=== PATIENT | female | born 1995 | race Two or more races ===

== ENCOUNTER 2019-07-29 12:36 | Emergency (ER) | payer OTHER ==
[~2019-07-29] VITALS: Ht 167.6 cm; Wt 90.7 kg
--- NOTE | 2019-07-29 12:52 | NUR ---
PT [id number] [id number], SUICIDAL W/ NOTED SELF INFLICT L WRIST LACERATION. PT IS AAOX4, NOT IN RESPIRATORY DISTRESS, HOOKED TO MONITOR, KEPT RESTED AND COMFORTABLE, WILL CONTINUE TO MONITOR.
--- NOTE | 2019-07-29 13:00 | NUR ---
CALLED SECURITY FOR WANDING.
--- NOTE | 2019-07-29 13:05 | NUR ---
SHRIMP CLEANER DEGRASSE AT BEDSIDE
--- NOTE | 2019-07-29 13:09 | NUR ---
URINAL GIVEN BUT UNABLE TO PROVIDE URINE SPECIMEN THIS TIME.
[2019-07-29] MEDS ORDERED: ONDANSETRON 4 MG TAB.RAPDIS ONE (13:12)
[2019-07-29] MEDS ORDERED: LORAZEPAM 1 MG TABLET ONE ×2 (13:14→17:47)
--- NOTE | 2019-07-29 13:23 | NUR ---
URINE SPECIMEN COLLECTED AND SENT TO LAB.
[2019-07-29] MEDS ORDERED: LIDOCAINE 2%-EPI 1:100,000 30 ML VIAL ONE (13:25)
[2019-07-29] MEDS ORDERED: TDAP [DIPH/PERTUSSIS/TET] 0.5 ML VIAL IM ONE ×2 (13:26→13:30)
[2019-07-29 13:28] LABS: APPEARANCE,URINE Clear (CLEAR); BILIRUBIN,URINE SMALL (NEGATIVE); BLOOD, URINE Large Ery/uL (NEGATIVE); COLOR,URINE Yellow (YELLOW); KETONES,URINE Trace (NEGATIVE); LEUKOCYTE ESTERASE ,URINE Negative (NEGATIVE); NITRITE, URINE Negative (NEGATIVE); PROTEIN,URINE Trace mg/dl (NEGATIVE); UGLUCOSE Negative (NEGATIVE); UROBILINOGEN,URINE 0.2 EU/dL (0.2)
[2019-07-29] MEDS ORDERED: LIDOCAINE 1%-EPI 1:100,000 50 ML VIAL IJ ONE (13:30)
[2019-07-29] MEDS ORDERED: ONDANSETRON 4 MG TAB.RAPDIS SL ONE (13:30)
[2019-07-29] MEDS ORDERED: LORAZEPAM 1 MG TABLET PO ONE ×2 (13:30→18:00)
--- NOTE | 2019-07-29 13:30 | NUR ---
ER PHLEB AT BEDSIDE FOR BLOOD DRAW.
[2019-07-29 13:32] LABS: BACTERIA,URINE Few /HPF (None Seen); SQUAMOUS EPITHELIAL CELL,UR Few /HPF (None Seen)
[2019-07-29 13:36] LABS: BASOPHILS # (AUTO) 0.1 /CMM (0.0-0.2); BASOPHILS % (AUTO) 0.8 % (0.0-2.0); EOSINOPHILS % (AUTO) 0.4 % (0.0-6.0); HEMATOCRIT 47 % (33-45); HEMOGLOBIN 15.3 g/dL (11.5-14.8); LYMPHOCYTES # (AUTO) 1.9 /CMM (0.8-4.8); LYMPHOCYTES % (AUTO) 23.2 % (20.0-44.0); MEAN CORPUSCULAR HGB CONC 33 g/dl (31.0-36.0); MEAN CORPUSCULAR VOLUME 92 fL (82-100); MONOCYTES # (AUTO) 0.5 /CMM (0.1-1.30); MONOCYTES % (AUTO) 5.6 % (2.0-12.0); NEUTROPHILS # (AUTO) 5.7 /CMM (1.8-8.9); PLATELET COUNT (AUTO) 324 /CMM (150-450); RED BLOOD CELL COUNT(AUTO) 5.06 MIL/uL (4.0-5.2); WHITE BLOOD COUNT (AUTO) 8.1 K/uL (4.3-11.0)
[2019-07-29 13:43] LABS: CALCIUM, SERUM 9.9 mg/dL (8.5-10.1); CARBON DIOXIDE 28 mmol/L (21-32); CHLORIDE 105 mmol/L (98-107); CREATININE 0.8 mg/dL (0.6-1.3); GLUCOSE 103 mg/dL (74-106); POTASSIUM 3.6 mmol/L (3.5-5.1); SODIUM SERUM 142 mmol/L (136-145); UREA NITROGEN, BLOOD 10 mg/dL (7-18)
[2019-07-29 13:48] LABS: ALANINE AMINOTRANSFERASE 31 U/L (12-78); ALBUMIN 4.6 g/dL (3.4-5.0); ALKALINE PHOSPHATASE 71 U/L (46-116); ASPARTATE AMINOTRANSFERASE 17 U/L (15-37); BILIRUBIN,DIRECT 0.1 mg/dL (0.0-0.2); BILIRUBIN,TOTAL 0.6 mg/dL (0.2-1.0); TOTAL PROTEIN, SERUM 8.6 g/dL (6.4-8.2)
[2019-07-29 13:49] LABS: ACETAMINOPHEN 0 ug/ml (10-30); ALCOHOL, BLOOD < 3 mg/dL (0-0); SALICYLATE 0.6 mg/dL (2.8-20.0)
--- NOTE | 2019-07-29 13:50 | NUR ---
SUTURING DONE BY ARCELIA ELDER NP.
--- NOTE | 2019-07-29 14:20 | NUR ---
FOOD TRAY PROVIDED.
--- NOTE | 2019-07-29 16:00 | NUR ---
SORAIDA SISTER CALLED TO CHECK UP ON HER.
--- NOTE | 2019-07-29 17:20 | NUR ---
DREAD RIVERA AT [facility] FOR EVAL.
--- NOTE | 2019-07-29 19:33 | NUR ---
SORAIDA NICKERSON SISTER
--- NOTE | 2019-07-29 23:30 | NUR ---
pt resting in gurney, no signs of distress noted. pt vital signs stable. sitter at bedside. will cont to monitor pt.
[2019-07-30] MEDS ORDERED: LORAZEPAM 1 MG TABLET ONE (00:01)
[2019-07-30] MEDS ORDERED: LORAZEPAM 1 MG TABLET PO ONE (00:30)
--- NOTE | 2019-07-30 04:50 | NUR ---
pt sleeping in rnaples. no signs of distress noted. pt vital signs stable. sitter at bedside. will cont to monitor pt.
--- NOTE | 2019-07-30 05:57 | NUR ---
PT VERBALIZED THAT HER R ARM WHERE THE CUT IS HURTING. MD MADE AWARE. VERBAL ORDER RECEIVED TO GIVE TYLENIL 650MG PO X 1. NOTED AND CARRIED OUT
[2019-07-30] MEDS ORDERED: ACETAMINOPHEN 325 MG TABLET ONE (05:58)
[2019-07-30] MEDS ORDERED: ACETAMINOPHEN 325 MG TABLET PO ONE (06:00)
--- NOTE | 2019-07-30 08:08 | NUR ---
PROVIDED W BREAKFAST TRAY. TOLERATING PO WELL.
--- NOTE | 2019-07-30 11:58 | NUR ---
DANA POE [phone] CALL FOR TRANSPORT UPON DISCHARGE
--- NOTE | 2019-07-30 13:21 | NUR ---
PATIENT ACCEPTED AT [facility], ACCEPTING MD LIZ GRIJALVA, [address] [place] [address], RN FOR REPORT IS [facility] [phone] CALL FOR REPORT IN 45 MINS.
[2019-07-30] MEDS ORDERED: ACETAMINOPHEN ES 500 MG TABLET PO ONE (13:30)
[2019-07-30] MEDS ORDERED: ACETAMINOPHEN ES 500 MG TABLET ONE (13:32)
--- NOTE | 2019-07-30 14:27 | NUR ---
CALLED [facility] PER BANDAR CALLED BACK IN 30 MINS.
--- NOTE | 2019-07-30 14:28 | NUR ---
KIMBERLY OBANDO [id number] TRIP#[id number]
--- NOTE | 2019-07-30 15:04 | NUR ---
REPORT GIVEN TO NICOLE PORTILLO OF [facility]. ON [id number] HOLD
[2019-07-30 15:05] VITALS: BP 117/61
--- NOTE | 2019-07-30 15:41 | NUR ---
REPORT GIVEN TO EMT FOR PT TRANSFER TO [facility].
== END 2019-07-30 15:54 ==
LOC: ER 12:38
DX: S61.511A Laceration without foreign body of right wrist, initial encounter (principal); R45.851 Suicidal ideations; F41.9 Anxiety disorder, unspecified; F32.9 Major depressive disorder, single episode, unspecified; Z88.5 Allergy status to narcotic agent; Z23 Encounter for immunization; X83.8XXA Intentional self-harm by other specified means, initial encounter; Y93.89 Activity, other specified; Y92.89 Other specified places as the place of occurrence of the external cause; Y99.8 Other external cause status
CPT/HCPCS: 12002; 36415; 80048; 80076; 80305; 80307; 80329; 81001; 84703; 85025; 90471; 90715; 99285; A6403; G0480; J3490 ×2; Q0162; 81000-TC